=== PATIENT | female | born 1940 | race Caucasian/White ===

== ENCOUNTER 2017-11-25 06:15 | Day surgery (SDC) | payer OTHER ==
[2017-11-25] MEDS: IV RINGERS,LACTATED 1000ML 1,000 ML IV (06:57)
[2017-11-25] MEDS ORDERED: ONDANSETRON PF 4 MG/2 ML VIAL. IV (07:00)
[2017-11-25] MEDS ORDERED: LIDOCAINE 1% PF 2 ML VIAL. ID (07:00)
[2017-11-25] MEDS ORDERED: fentaNYL PF VIAL 100 MCG/2 ML VIAL IV (07:00)
[2017-11-25] MEDS ORDERED: MORPHINE SULFATE 2 MG/ML DISP.SYRIN. IV (07:00)
[2017-11-25] MEDS ORDERED: PROCHLORPERAZINE 10 MG/2 ML VIAL. IV (07:00)
[2017-11-25] MEDS ORDERED: HYDROmorphone 2 MG/ML VIAL IV (07:00)
[2017-11-25] MEDS ORDERED: ONDANSETRON PF 4 MG/2 ML VIAL. (07:13)
[2017-11-25] MEDS ORDERED: PROPOFOL 20 ML IV (07:13)
[2017-11-25] MEDS ORDERED: DEXAMETHASONE SOD PHOS 20 MG/5 ML VIAL. (07:13)
[2017-11-25] MEDS ORDERED: LIDOCAINE 2% PF Vial for OR 5 ML VIAL. (07:13)
[2017-11-25] MEDS ORDERED: fentaNYL PF VIAL 100 MCG/2 ML VIAL (07:14)
[2017-11-25] MEDS: CLINDAMYCIN 900MG PREMIX 50 ML IV (07:48)
[2017-11-25] MEDS ORDERED: SEVOFLURANE 61 TO 120 MINUTES. IH (08:06)
[2017-11-25] MEDS: BUPIVACAINE MPF 0.5% 30 ML VIAL. (09:51)
[2017-11-25] MEDS: fentaNYL PF VIAL 100 MCG/2 ML VIAL IV (09:51)
[2017-11-25] MEDS: LIDOCAINE 1% PF 30 ML VIAL. (09:52)
[2017-11-25] MEDS: traMADol 50 MG TABLET PO (10:00)
== END 2017-11-25 11:03 | disposition home or self-care (01) ==
LOC: SURG 06:15
DX: S52.572A Other intraarticular fracture of lower end of left radius, initial encounter for closed fracture (principal); I10 Essential (primary) hypertension; E78.5 Hyperlipidemia, unspecified; Z95.0 Presence of cardiac pacemaker; Z87.891 Personal history of nicotine dependence; Z79.899 Other long term (current) drug therapy; W19.XXXA Unspecified fall, initial encounter; Y93.89 Activity, other specified; Y92.89 Other specified places as the place of occurrence of the external cause; Y99.8 Other external cause status
CPT/HCPCS: 25608; 76000; C1713; J1100; J2405; J2704; J3010; J3490; J7120